=== PATIENT | female | born 2005 | race African-American/Black ===

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

== ENCOUNTER → 2025-02-13 | Outpatient (REF) | LOC: M LAB 09:48 | PROVIDERS: ATTEND Family Medicine | DX: Z01.89 Encounter for other specified special examinations (principal) ==

== ENCOUNTER 2025-03-08 11:11 | Emergency (ER) | payer MEDICAID ==
[~2025-03-08] VITALS: Ht 160 cm; Wt 118.2 kg
[2025-03-08] MEDS: NS (Normal Saline) 0.9% 1,000 ML IV ONE ×2 (13:22→15:22)
[2025-03-08] MEDS: ONDANSETRON 4MG 2ML VIAL IV ONE (13:23)
[2025-03-08 13:32] LABS: BASO # 0.1 10^3/uL (0.0-0.2); BASO % 0.8 % (0.0-1.0); EOS # 0.1 10^3/uL (0.0-0.5); EOS % 1.2 % (0.0-3.0); LYMPH # 2.3 10^3/uL (1.5-5.0); LYMPH % 34.1 % (24.0-44.0); MONO # 0.5 10^3/uL (0.0-0.8); MONO % 6.9 % (2.0-8.0); NEUTROPHILS # 3.8 10^3/uL (1.5-8.5); NEUTROPHILS % 56.7 % (36.0-66.0); PLATELET COUNT, AUTOMATED 388 10^3/uL (150-450)
[2025-03-08 13:38] LABS: ERYTHROCYTE SEDIMENTATION RATE 79 mm/hr (0-20)
[2025-03-08 14:04] LABS: C REACTIVE PROTEIN QUANTITATIV 0.96 MG/DL (<1.0); CALCIUM LEVEL 10.0 MG/DL (8.5-10.1); CARBON DIOXIDE LEVEL 29 MMOL/L (20-31); CHLORIDE LEVEL 101 MMOL/L (98-107); CK-MB VALUE MASS 1.5 NG/ML (<3.6); CPK CREATINE PHOSPHOKINASE 203 U/L (34-145); CREATININE FOR GFR 0.68 MG/DL (0.55-1.30); GLOMERULAR FILTRATION RATE > 90.0 (>60); MB/CK RELATIVE INDEX 0.73 (< OR =4); POTASSIUM SERUM 4.4 MMOL/L (3.5-5.1); SODIUM LEVEL 141 MMOL/L (136-145)
[2025-03-08 14:18] LABS: HCG, SERUM QUALITATIVE NEGATIVE (NEGATIVE)
[2025-03-08 16:02] VITALS: O2SAT 99
[2025-03-08 16:36] VITALS: BP 156/74
[2025-03-08 16:57] VITALS: TEMP 97.6
== END 2025-03-08 17:16 | disposition home or self-care (01) ==
LOC: M ED 11:11
DX: R42 Dizziness and giddiness (principal); I10 Essential (primary) hypertension; R94.31 Abnormal electrocardiogram [ECG] [EKG]
CPT/HCPCS: 80048; 82550; 82553; 84484; 84703; 85025; 85652; 86140; 87486; 87581; 87633; 87798; 93005; 96361; 96374; 99285; J2405

== ENCOUNTER → 2025-04-04 | Outpatient (REF) ==
[2025-04-04 11:08] LABS: SOFIA COVID ANTIGEN NEGATIVE (NEGATIVE)
== END ==
LOC: M EMP 10:18
PROVIDERS: ATTEND Family Medicine
DX: Z01.89 Encounter for other specified special examinations (principal)

== ENCOUNTER 2025-04-07 09:42 | Emergency (ER) | payer MEDICAID ==
[~2025-04-07] VITALS: Ht 160 cm; Wt 120.0 kg
[2025-04-07] MEDS ORDERED: MONT10TA97 (10:11)
[2025-04-07] MEDS ORDERED: FLUTISP (10:11)
[2025-04-07] MEDS ORDERED: PROA1AER2 INH (10:11)
[2025-04-07] MEDS ORDERED: SYMB16INH INH (10:11)
[2025-04-07] MEDS ORDERED: PRED20TA PO (11:44)
[2025-04-07] MEDS ORDERED: CLAR10CA3 PO (11:44)
[2025-04-07] MEDS ORDERED: FLON1SPR NARES (11:44)
[2025-04-07] MEDS ORDERED: AMOX500C PO (11:45)
[2025-04-07 11:54] VITALS: BP 128/70; TEMP 96.7; O2SAT 100
== END 2025-04-07 12:03 | disposition home or self-care (01) ==
LOC: M ED 09:42
DX: J01.80 Other acute sinusitis (principal); R09.81 Nasal congestion; I10 Essential (primary) hypertension; J45.909 Unspecified asthma, uncomplicated; Z91.040 Latex allergy status; Z79.51 Long term (current) use of inhaled steroids; Z79.2 Long term (current) use of antibiotics; Z79.899 Other long term (current) drug therapy; Z79.52 Long term (current) use of systemic steroids

== ENCOUNTER 2025-04-26 14:52 | Emergency (ER) | payer MEDICAID, OTHER ==
[~2025-04-26] VITALS: Ht 160 cm; Wt 123.9 kg
[~2025-04-26 14:52] MED LIST changes: +AMOX500C PO; +CLAR10CA3 PO; +FLON1SPR NARES; +FLUTISP; +MONT10TA97; +PRED20TA PO; +PROA1AER2 INH; +SULF-7 PO; -SULF1TAB23 PO; +SYMB16INH INH
[2025-04-26] MEDS: IPRATROPIUM 0.5 MG/ALBUTEROL 2.5 MG INH SOL UD 3 ML NEB SCH (15:21)
[2025-04-26 16:37] LABS: URINE PREG TEST NEGATIVE (NEGATIVE)
[2025-04-26 17:34] VITALS: BP 134/79; TEMP 97.4; O2SAT 99
== END 2025-04-26 17:36 | disposition home or self-care (01) ==
LOC: M ED 14:52
DX: J45.901 Unspecified asthma with (acute) exacerbation (principal); I10 Essential (primary) hypertension; Z87.891 Personal history of nicotine dependence; Z91.040 Latex allergy status; R00.0 Tachycardia, unspecified